=== PATIENT | male | born 1955 | race Caucasian/White ===

== ENCOUNTER 2018-01-21 15:36 | Emergency (ER) | payer OTHER ==
--- NOTE | 2018-01-21 15:51 | PDOC ---
Rapid Medical Evaluation Time Seen by Provider: 01/21/18 15:50 Medical Evaluation: 01/21/18 15:50 I have performed a brief in-person evaluation of this patient. The patient presents with a chief complaint of: slipped and fell, low back pain , neck pain Pertinent physical exam findings: tenderness to L4-5/sacrum I have ordered the following: x-ray The patient will proceed to the ED for further evaluation.
[2018-01-21 15:54] VITALS: BP 151/92; PULSE 78; TEMP 97.7; BMI 29.0
--- NOTE | 2018-01-21 16:08 | PDOC ---
History of Present Illness - General Chief Complaint: Injury Stated Complaint: FALL/BACK PAIN Time Seen by Provider: 01/21/18 15:50 History Source: Patient - History of Present Illness Occurred: reports: this afternoon Method of Injury: Yes: fall Past History - Past Medical History Allergies/Adverse Reactions: Allergies Allergy/AdvReac Type Severity Reaction Status Date / Time Penicillins Allergy Verified 01/21/18 15:51 Home Medications: Ambulatory Orders Lisinopril 10 mg PO ASDIR 01/21/18 COPD: No Hypercholesterolemia: Yes - Suicide/Smoking/Psychosocial Hx Smoking History: Never smoked Have you smoked in the past 12 months: No Information on smoking cessation initiated: No Hx Alcohol Use: No Drug/Substance Use Hx: No Substance Use Type: None Review of Systems - Review of Systems ABD/GI: No: Nausea, Vomiting Musculoskeletal: No: Neck Pain Neurological: No: Headache, Numbness, Tingling, Weakness, Dizziness *Physical Exam - Vital Signs Last Vital Signs Temp Pulse Resp BP Pulse Ox 97.7 F 78 18 151/92 100 01/21/18 15:51 01/21/18 15:51 01/21/18 15:51 01/21/18 15:51 01/21/18 15:51 - Physical Exam General Appearance: Yes: Appropriately Dressed. No: Apparent Distress HEENT: positive: Normal Voice Neck: positive: Supple Respiratory/Chest: negative: Respiratory Distress Gastrointestinal/Abdominal: positive: Soft. negative: Tender Musculoskeletal: positive: Vertebral Tenderness (over tailbone) Extremity: positive: Normal Inspection Integumentary: positive: Warm Neurologic: positive: Fully Oriented, Alert, Normal Mood/Affect Medical Decision Making - Medical Decision Making 01/21/18 16:06 62 yo M, no sig hx, here with lower back pain status post fall. Patient states this afternoon he slipped and fell at home landing on his back. Denies LOC, head injury, headache, dizziness, nausea or vomiting. Denies any lower extremity weakness, saddle anesthesia, bowel or bladder incontinence or sensory changes. No neck pain. Has not taking anything for pain See exam M/l back strain/sprain -pain control -XR 01/21/18 16:45 Xray neg for fx. Stable for dc w/ otc meds prn and PMD f/u *DC/Admit/Observation/Transfer Diagnosis at time of Disposition: Low back sprain Qualifiers: Encounter type: initial encounter Qualified Code(s): S33.9XXA - Sprain of unspecified parts of lumbar spine and pelvis, initial encounter - Discharge Dispostion Condition at time of disposition: Improved - Referrals Referrals: ON STAFF,NOT [Primary Care Provider] - - Patient Instructions Printed Discharge Instructions: DI for Back Strain or Sprain Additional Instructions: Your ray did not show any fracture. You most likely have a lower back sprain which can take a week or 2 to get better. Take Motrin or Tylenol as needed for pain. If pain persists after 2 weeks, please follow-up with your PMD - Post Discharge Activity
--- NOTE | 2018-01-21 16:09 | PDOC ---
History of Present Illness - General Chief Complaint: Injury Stated Complaint: FALL/BACK PAIN Time Seen by Provider: 01/21/18 15:50 Past History - Past Medical History Allergies/Adverse Reactions: Allergies Allergy/AdvReac Type Severity Reaction Status Date / Time Penicillins Allergy Verified 01/21/18 15:51 COPD: No Hypercholesterolemia: Yes - Suicide/Smoking/Psychosocial Hx Smoking History: Never smoked Have you smoked in the past 12 months: No Information on smoking cessation initiated: No Hx Alcohol Use: No Drug/Substance Use Hx: No Substance Use Type: None *Physical Exam - Vital Signs Last Vital Signs Temp Pulse Resp BP Pulse Ox 97.7 F 78 18 151/92 100 01/21/18 15:51 01/21/18 15:51 01/21/18 15:51 01/21/18 15:51 01/21/18 15:51 *DC/Admit/Observation/Transfer - Referrals Referrals: ON STAFF,NOT [Primary Care Provider] - - Patient Instructions - Post Discharge Activity
[2018-01-21] MEDS ORDERED: IBUPROFEN 400 MG TABLET (FP) PO ONE ×2 (16:28→16:45)
== END 2018-01-21 16:47 | disposition home or self-care (01) ==
LOC: JERFT 15:36
DX: S33.9XXA Sprain of unspecified parts of lumbar spine and pelvis, initial encounter (principal); W18.39XA Other fall on same level, initial encounter; Y93.89 Activity, other specified; Y92.9 Unspecified place or not applicable; E78.00 Pure hypercholesterolemia, unspecified
CPT/HCPCS: 72100-TC-FY; 99281-25

== ENCOUNTER 2018-02-11 00:41 | Emergency (ER) | payer OTHER ==
[2018-02-11 00:51] VITALS: BP 183/95; PULSE 54; TEMP 97.3; BMI 32.3
[2018-02-11] MEDS ORDERED: KETOROLAC TROMETHAMINE 30 MG/1 ML VIAL IVPUSH ONE (00:58)
[2018-02-11] MEDS ORDERED: SODIUM CHLORIDE 1,000 ML IV STA (00:58)
--- NOTE | 2018-02-11 01:01 | PDOC ---
History of Present Illness - General Chief Complaint: Pain, Acute Stated Complaint: ABD PAIN Time Seen by Provider: 02/11/18 00:54 History Source: Patient Exam Limitations: No Limitations - History of Present Illness Initial Comments: CHIEF COMPLAINT: 62 y/o afebrile male with PMH HTN, kidney stones c/o left side pain for the past 2 hours. HISTORY OF PRESENT ILLNESS: The patient states it feels like a kidney stone. He denies f/c, n/v/d, CP, SOB, back pain, hematuria, dysuria. Vital signs on arrival are within normal limits. REVIEW OF SYSTEMS: GENERAL/CONSTITUTIONAL: No fever/chills. No weakness. No weight change. HEAD, EYES, EARS, NOSE AND THROAT: No change in vision. No ear pain or discharge. No sore throat. CARDIOVASCULAR: No chest pain or shortness of breath. RESPIRATORY: No cough, wheezing, or hemoptysis. GASTROINTESTINAL: +left flank pain. No nausea, vomiting, diarrhea. GENITOURINARY: No dysuria, frequency, or change in urination. MUSCULOSKELETAL: No joint or muscle swelling or pain. No neck or back pain. SKIN: No rash or easy bruising. NEUROLOGIC: No headache, vertigo, loss of consciousness, or loss of sensation. PHYSICAL EXAM: GENERAL: The patient is awake, alert, and fully oriented, rocking back and forth in the ER bed in pain. HEAD: Normal with no signs of trauma. ENT: Pupils equal, round and reactive to light, extraocular movements intact, sclera anicteric, conjunctiva clear. Neck supple. LUNGS: Clear to auscultation bilaterally. Normal excursion. No respiratory distress or use of accessory muscles. CV: RRR, S1/S2, no MRG. Cap refill < 2 sec. ABDOMEN: Pain with palpation of left flank. No suprapubic TTP. Soft, non- distended, non-tender even to deep palpation, no hepatomegaly or splenomegaly, no masses. BACK: No CVA TTP b/l. EXTREMITIES: Normal range of motion, no edema. NEUROLOGICAL: Normal speech, normal gait. CN II-XII grossly intact. PSYCH: Normal mood, normal affect. SKIN: Warm, dry, normal turgor, no rashes or lesions noted. Past History - Past Medical History Allergies/Adverse Reactions: Allergies Allergy/AdvReac Type Severity Reaction Status Date / Time Penicillins Allergy Verified 02/11/18 00:50 Home Medications: Ambulatory Orders Lisinopril 10 mg PO ASDIR 01/21/18 Ibuprofen 600 mg PO Q6H #20 tablet 02/11/18 Ibuprofen 600 mg PO Q6H #20 tablet 02/11/18 Oxycodone HCl/Acetaminophen [Percocet 5-325 mg Tablet] 1 tab PO Q6H #12 tablet MDD 6 02/11/18 Oxycodone HCl/Acetaminophen [Percocet 5-325 mg Tablet] 1 tab PO Q6H #12 tablet MDD 6 02/11/18 Tamsulosin HCl [Flomax] 0.4 mg PO DAILY #7 cap.er.24h 02/11/18 Tamsulosin HCl [Flomax] 0.4 mg PO DAILY #7 cap.er.24h 02/11/18 COPD: No Hypercholesterolemia: Yes - Suicide/Smoking/Psychosocial Hx Smoking History: Never smoked Have you smoked in the past 12 months: No Information on smoking cessation initiated: No Hx Alcohol Use: Yes Drug/Substance Use Hx: No Substance Use Type: None *Physical Exam - Vital Signs Last Vital Signs Temp Pulse Resp BP Pulse Ox 97.3 F L 54 L 20 183/95 98 02/11/18 00:47 02/11/18 00:47 02/11/18 00:47 02/11/18 00:47 02/11/18 00:47 ED Treatment Course - LABORATORY CBC & Chemistry Diagram: 02/11/18 01:13 02/11/18 03:56 - RADIOLOGY Radiology Studies Ordered: Category Date Time Status SPIRAL- RENAL-STONE CT [CT] Stat CT Scan 02/11/18 00:58 Ordered Medical Decision Making - Medical Decision Making A/P: 62 y/o male with signs and symptoms of kidney stone. Plan is as follows: 1. labs 2. Spiral CT 3. UA/culture CT scan IMPRESSION: Mild left hydronephrosis and perinephric inflammation secondary to 5x3mm mid to distal ureteral stone. labs unremarkable. No UTI Patient was feeling better but pain returning. Will give IV morphine and flomax Will discharge to home with rx for percocet, ibuprofen and flomax. Instructed him to drink plenty of water and f/u with his urologist as soon as possible. Instructed the patient to return to the ER immediately with any worsening or concerning symptoms. The patient verbalizes understanding of all instructions, has no further questions and is awaiting discharge. *DC/Admit/Observation/Transfer Diagnosis at time of Disposition: Kidney stone on left side - Discharge Dispostion Disposition: HOME Condition at time of disposition: Fair - Prescriptions Prescriptions: Ibuprofen 600 mg PO Q6H #20 tablet Ibuprofen 600 mg PO Q6H #20 tablet Oxycodone HCl/Acetaminophen [Percocet 5-325 mg Tablet] 1 tab PO Q6H #12 tablet MDD 6 Oxycodone HCl/Acetaminophen [Percocet 5-325 mg Tablet] 1 tab PO Q6H #12 tablet MDD 6 Tamsulosin HCl [Flomax] 0.4 mg PO DAILY #7 cap.er.24h Tamsulosin HCl [Flomax] 0.4 mg PO DAILY #7 cap.er.24h - Referrals - Patient Instructions Printed Discharge Instructions: DI for Kidney Stones Additional Instructions: Discharge Instructions: -You have a kidney stone on your left side which you should pass on your own -3 prescriptions have been sent to your pharmacy -Please drink lots of water -Follow up with your urologist within 1 week -Return to the ER with any worsening or concerning symptoms. - Post Discharge Activity
[2018-02-11] MEDS ORDERED: KETOROLAC TROMETHAMINE 30 MG/1 ML VIAL ONE (01:03)
[2018-02-11 04:25] LABS: ALBUMIN 3.8 g/dl (3.4-5.0); ALK PHOS 82 U/L (45-117); ANION GAP 12 (8-16); BILIRUBIN,TOTAL 0.5 mg/dL (0.2-1.0); BLOOD UREA NITROGEN 18 mg/dL (7-18); CALCIUM 9.4 mg/dL (8.5-10.1); CHLORIDE 107 mmol/L (98-107); CO2 23 mmol/L (21-32); CREATININE 1.4 mg/dL (0.7-1.3); GLUCOSE,RANDOM 140 mg/dL (74-106); POTASSIUM 4.6 mmol/L (3.5-5.1); SGOT/AST 21 U/L (15-37); SGPT/ALT 34 U/L (12-78); SODIUM 142 mmol/L (136-145); TOT PROT 6.7 g/dl (6.4-8.2)
[2018-02-11 04:32] LABS: BASO % 0.6 % (0-2.0); EOS % 1.8 % (0-4.5); HEMATOCRIT 47.1 % (35.4-49); HEMOGLOBIN 16.6 GM/dL (11.7-16.9); LYMPH % 31.8 % (8-40); MCH 32.8 pg (25.7-33.7); MCHC 35.4 g/dl (32.0-35.9); MEAN CELL VOLUME 92.7 fl (80-96); MEAN PLT VOLUME 8.3 fl (7.5-11.1); MONO % 10.8 % (3.8-10.2); PLATELET COUNT 176 K/MM3 (134-434); RBC 5.08 M/mm3 (4.00-5.60); RDW 13.1 % (11.9-15.9); WHITE BLOOD COUNT 7.5 K/mm3 (4.0-10.0)
[2018-02-11 04:52] LABS: URINE APPEARANCE CLEAR; URINE BILIRUBIN NEGATIVE (<2.0 mg/dL); URINE BLOOD 3+ (NEGATIVE); URINE COLOR LTYELLOW; URINE GLUCOSE (UA) NEGATIVE (NEGATIVE); URINE KETONE NEGATIVE (NEGATIVE); URINE LEUK ESTERASE NEGATIVE (NEGATIVE); URINE NITRITE NEGATIVE (NEGATIVE); URINE PROTEIN NEGATIVE (NEGATIVE); URINE UROBILINOGEN NEGATIVE mg/dL (0.2-1.0)
[2018-02-11 05:03] LABS: URINE MUCUS RARE
[2018-02-11] MEDS ORDERED: TAMSULOSIN HCL 0.4 MG CAP.ER.24H (FP) PO ONE (05:53)
[2018-02-11] MEDS ORDERED: morphine CARPU-JECT 4 MG/1 ML DISP.SYRIN IVPUSH ONE (05:53)
[2018-02-11] MEDS ORDERED: morphine SULFATE 4 MG/ML VIAL ONE (05:59)
[2018-02-11] MEDS ORDERED: TAMSULOSIN HCL 0.4 MG CAP.ER.24H (FP) ONE (05:59)
--- NOTE | 2018-02-11 06:12 | PDOC ---
*Physical Exam - Vital Signs Last Vital Signs Temp Pulse Resp BP Pulse Ox 97.3 F L 54 L 20 183/95 98 02/11/18 00:47 02/11/18 00:47 02/11/18 00:47 02/11/18 00:47 02/11/18 00:47 ED Treatment Course - LABORATORY CBC & Chemistry Diagram: 02/11/18 01:13 02/11/18 03:56 - ADDITIONAL ORDERS Additional order review: Laboratory Results 02/11/18 02/11/18 03:56 03:56 Sodium 142 Potassium 4.6 Chloride 107 Carbon Dioxide 23 Anion Gap 12 BUN 18 Creatinine 1.4 H Creat Clearance w eGFR 51.35 Random Glucose 140 H Calcium 9.4 Total Bilirubin 0.5 AST 21 ALT 34 Alkaline Phosphatase 82 Total Protein 6.7 Albumin 3.8 Urine Color Ltyellow Urine Appearance Clear Urine pH 6.0 Ur Specific Shorter 1.016 Urine Protein Negative Urine Glucose (UA) Negative Urine Ketones Negative Urine Blood 3+ H Urine Nitrite Negative Urine Bilirubin Negative Urine Urobilinogen Negative Ur Leukocyte Esterase Negative Urine WBC (Auto) 22 Urine RBC (Auto) 207 Urine Mucus Rare 02/11/18 01:13 RBC 5.08 MCV 92.7 MCHC 35.4 RDW 13.1 MPV 8.3 Neutrophils % 55.0 Lymphocytes % 31.8 Monocytes % 10.8 H Eosinophils % 1.8 Basophils % 0.6 - Medications Given in the ED: ED Medications Discontinued Medications Generic Name Dose Route Start Last Admin Trade Name Freq PRN Reason Stop Dose Admin Ketorolac Tromethamine 30 mg 02/11/18 00:58 02/11/18 01:13 Toradol Injection - IVPUSH 02/11/18 00:59 30 mg ONCE ONE Administration Medical Decision Making - Medical Decision Making 02/11/18 06:12 agree with care from RADHA Morrissey *DC/Admit/Observation/Transfer Diagnosis at time of Disposition: Kidney stone on left side - Discharge Dispostion Disposition: HOME Condition at time of disposition: Fair - Prescriptions Prescriptions: Ibuprofen 600 mg PO Q6H #20 tablet Ibuprofen 600 mg PO Q6H #20 tablet Oxycodone HCl/Acetaminophen [Percocet 5-325 mg Tablet] 1 tab PO Q6H #12 tablet MDD 6 Oxycodone HCl/Acetaminophen [Percocet 5-325 mg Tablet] 1 tab PO Q6H #12 tablet MDD 6 Tamsulosin HCl [Flomax] 0.4 mg PO DAILY #7 cap.er.24h Tamsulosin HCl [Flomax] 0.4 mg PO DAILY #7 cap.er.24h - Referrals - Patient Instructions Printed Discharge Instructions: DI for Kidney Stones Additional Instructions: Discharge Instructions: -You have a kidney stone on your left side which you should pass on your own -3 prescriptions have been sent to your pharmacy -Please drink lots of water -Follow up with your urologist within 1 week -Return to the ER with any worsening or concerning symptoms. - Post Discharge Activity
== END 2018-02-11 06:28 | disposition home or self-care (01) ==
LOC: JER 00:41
PROC: 3E0333Z Introduction of Anti-inflammatory into Peripheral Vein, Percutaneous Approach (ICD-10-PCS; principal; 2018-02-11)
PROC: 3E0337Z Introduction of Electrolytic and Water Balance Substance into Peripheral Vein, Percutaneous Approach (ICD-10-PCS; 2018-02-11)
DX: N20.0 Calculus of kidney (principal); I10 Essential (primary) hypertension
CPT/HCPCS: 36415; 74176; 80053; 81003; 81015; 85025; 87086; 96361; 96374; 99282-25; J7030